=== PATIENT | male | born 1960 | race Caucasian/White ===

== ENCOUNTER 2017-08-20 13:14 | Outpatient (CLI) | payer OTHER | END 2017-08-20 13:24 | disposition home or self-care (01) | LOC: RAD 13:14 | DX: M54.2 Cervicalgia (principal); M25.562 Pain in left knee; M25.561 Pain in right knee; M54.5 Low back pain ==

== ENCOUNTER 2018-07-05 17:13 | Emergency (ER) | payer OTHER ==
[~2018-07-05] VITALS: Ht 175.3 cm; Wt 77.1 kg
[2018-07-05] MEDS ORDERED: ZESTRIL2.5 MG PO (18:27)
[2018-07-05] MEDS ORDERED: ASA81 MG PO (18:27)
[2018-07-05] MEDS ORDERED: LIPITOR20 MG PO (18:27)
[2018-07-05] MEDS ORDERED: RESTORIL30 MG PO (18:28)
== END 2018-07-05 20:34 | disposition home or self-care (01) ==
LOC: ER 17:13
DX: S00.83XA Contusion of other part of head, initial encounter (principal); S60.222A Contusion of left hand, initial encounter; S13.4XXA Sprain of ligaments of cervical spine, initial encounter; V19.9XXA Pedal cyclist (driver) (passenger) injured in unspecified traffic accident, initial encounter; Y93.89 Activity, other specified; Y92.89 Other specified places as the place of occurrence of the external cause; Y99.8 Other external cause status

== ENCOUNTER 2019-08-13 10:57 | Outpatient (CLI) | payer OTHER ==
[~2019-08-13 10:57] MED LIST: ASA81 MG PO; LIPITOR20 MG PO; RESTORIL30 MG PO; ZESTRIL2.5 MG PO
== END 2019-08-13 10:58 | disposition home or self-care (01) ==
LOC: SONOGRAMA 10:57 → MAMO-SONO 11:15
PROVIDERS: ATTEND Family Medicine
DX: R20.2 Paresthesia of skin (principal); M54.30 Sciatica, unspecified side; R10.84 Generalized abdominal pain; M48.061 Spinal stenosis, lumbar region without neurogenic claudication

== ENCOUNTER → 2019-08-18 11:31 | Outpatient (CLI) | payer OTHER | END | disposition home or self-care (01) | LOC: LAB 11:31 | PROVIDERS: ATTEND Radiology Diagnostic Radiology | DX: R10.84 Generalized abdominal pain (principal); M54.30 Sciatica, unspecified side ==

== ENCOUNTER 2019-08-18 13:39 | Outpatient (CLI) | payer OTHER | END 2019-08-18 14:00 | disposition home or self-care (01) | LOC: MRI 13:39 | PROVIDERS: ATTEND Family Medicine | DX: R20.2 Paresthesia of skin (principal); M54.30 Sciatica, unspecified side; R10.84 Generalized abdominal pain; M48.061 Spinal stenosis, lumbar region without neurogenic claudication | CPT/HCPCS: 72158 ==

== ENCOUNTER 2020-12-16 10:41 | Emergency (ER) | payer OTHER ==
[~2020-12-16] VITALS: Ht 175.3 cm; Wt 76.2 kg
[2020-12-16] MEDS ORDERED: KETO10TA2 PO (12:35)
[2020-12-16] MEDS ORDERED: NORFLEX100MG PO (12:35)
== END 2020-12-16 12:45 | disposition home or self-care (01) ==
LOC: ER 10:41
DX: S13.9XXA Sprain of joints and ligaments of unspecified parts of neck, initial encounter (principal); M54.2 Cervicalgia; V43.92XA Unspecified car occupant injured in collision with other type car in traffic accident, initial encounter; Y93.89 Activity, other specified; Y92.410 Unspecified street and highway as the place of occurrence of the external cause

== ENCOUNTER 2021-02-21 11:38 | Outpatient (CLI) | payer OTHER ==
[~2021-02-21 11:38] MED LIST changes: +KETO10TA2 PO; +NORFLEX100MG PO
== END 2021-02-21 11:59 | disposition home or self-care (01) ==
LOC: RAD 11:38
PROVIDERS: ATTEND Family Medicine
DX: M54.30 Sciatica, unspecified side (principal); R20.2 Paresthesia of skin; R10.9 Unspecified abdominal pain; M48.061 Spinal stenosis, lumbar region without neurogenic claudication; M25.561 Pain in right knee; M25.562 Pain in left knee

== ENCOUNTER 2024-03-25 15:24 | Outpatient (CLI) | payer OTHER | END 2024-03-25 15:27 | disposition home or self-care (01) | LOC: SONOGRAMA 15:24 | PROVIDERS: ATTEND Family Medicine | DX: I10 Essential (primary) hypertension (principal); N18.2 Chronic kidney disease, stage 2 (mild); R10.9 Unspecified abdominal pain; E78.00 Pure hypercholesterolemia, unspecified ==

== ENCOUNTER 2024-05-27 11:46 | Outpatient (CLI) | payer OTHER | END 2024-05-27 11:52 | disposition home or self-care (01) | LOC: RAD 11:46 | DX: M25.561 Pain in right knee (principal); M25.562 Pain in left knee ==

== ENCOUNTER 2024-06-29 11:00 | Outpatient (CLI) | payer OTHER | END 2024-06-29 14:02 | disposition home or self-care (01) | LOC: RAD 11:00 | PROVIDERS: ATTEND Internal Medicine Cardiovascular Disease | DX: M19.90 Unspecified osteoarthritis, unspecified site (principal) ==